=== PATIENT | male | born 1940 | race Asian ===

== ENCOUNTER 2016-12-08 16:14 | Inpatient (IN) | payer OTHER, MEDICAID ==
[~2016-12-08] VITALS: Ht 170.2 cm; Wt 54.5 kg
[2016-12-08 17:12] LABS: microscopic required? NO
[2016-12-08 17:20] LABS: urine erythrocyte NEGATIVE (NEGATIVE)
[2016-12-08 17:51] LABS: ALKALINE PHOSPHATASE 68 U/L (46-116); ALT/SGPT 19 U/L (16-63); AST/SGOT 48 U/L (15-37); CALCIUM 6.9 mg/dL (8.5-10.1); CARBON DIOXIDE 20.9 mmol/L (21-32); CHLORIDE SERUM 113 mmol/L (98-107); CREATININE SERUM 1.1 mg/dL (0.7-1.3); POTASSIUM SERUM 3.6 mmol/L (3.5-5.1); SODIUM SERUM 146 mmol/L (136-145)
[2016-12-08 17:52] LABS: ALBUMIN 1.7 g/dL (3.4-5.0); PLATELET COUNT 172 x10^3mcL (130-400); TOTAL PROTEIN, SERUM 3.9 g/dL (6.4-8.2)
[2016-12-08 17:56] LABS: GLUCOSE SERUM 549 mg/dL (74-106)
[2016-12-08 18:07] LABS: BAND NEUTROPHIL 4 % (0-10); BASOPHIL 0 % (0-2); SEGMENTED NEUTROPHILS 93 % (37-75)
[2016-12-08 18:13] LABS: rbc morphology (normal/abnorm) ABNORMAL (NORMAL)
[2016-12-08 18:16] LABS: PLATELET MORPHOLOGY PLATELETS NORMAL
[2016-12-08] MEDS ORDERED: JANUVIA100 M1 PO (18:18)
[2016-12-08] MEDS ORDERED: GLIPIZIDE2.5 M1 PO (18:18)
[2016-12-08] MEDS ORDERED: METFORMIN500 M1 PO (18:18)
[2016-12-08 20:14] LABS: CHOLESTEROL/HDL RATIO 2.8
[2016-12-08 20:23] LABS: FREE T4 1.03 ng/dL (0.76-1.46); T4(THYROXINE) 5.2 ug/dL (4.7-13.3)
[2016-12-08 20:28] LABS: T3 TOTAL 0.58 ng/mL
[2016-12-08 21:33] VITALS: BP 70/41
[2016-12-08 23:40] VITALS: BP 120/74
[2016-12-08 23:50] VITALS: BP 120/74
[2016-12-09] VITALS (17 sets, daily range): BP systolic 75–134; BP diastolic 48–83; Ht 170.2 cm; Wt 54.5 kg
[2016-12-09 01:34] LABS: CALCIUM 6.7 mg/dL (8.5-10.1); CARBON DIOXIDE 21.4 mmol/L (21-32); CHLORIDE SERUM 116 mmol/L (98-107); CREATININE SERUM 1.2 mg/dL (0.7-1.3); PHOSPHOROUS 3.9 mg/dL (2.5-4.9); POTASSIUM SERUM 4.8 mmol/L (3.5-5.1); SODIUM SERUM 150 mmol/L (136-145)
[2016-12-09 01:39] LABS: GLUCOSE SERUM 452 mg/dL (74-106)
[2016-12-09 01:40] LABS: PLATELET COUNT 155 x10^3mcL (130-400)
[2016-12-09 01:41] LABS: BASOPHIL % 0 % (0-2); RED CELL DISTRIBUTION WIDTH 14.7 % (11.5-14.5)
[2016-12-09 04:51] LABS: PLATELET COUNT 167 x10^3mcL (130-400)
[2016-12-09 04:55] LABS: BASOPHIL % 0 % (0-2); RED CELL DISTRIBUTION WIDTH 15.2 % (11.5-14.5)
[2016-12-09 05:04] LABS: CALCIUM 6.5 mg/dL (8.5-10.1); CARBON DIOXIDE 21.9 mmol/L (21-32); CHLORIDE SERUM 115 mmol/L (98-107); CREATININE SERUM 1.1 mg/dL (0.7-1.3); GLUCOSE SERUM 331 mg/dL (74-106); MAGNESIUM 1.7 mg/dL (1.8-2.4); PHOSPHOROUS 3.5 mg/dL (2.5-4.9); POTASSIUM SERUM 3.9 mmol/L (3.5-5.1); SODIUM SERUM 148 mmol/L (136-145)
[2016-12-09 09:19] LABS: CALCIUM 6.4 mg/dL (8.5-10.1); CARBON DIOXIDE 21.2 mmol/L (21-32); CHLORIDE SERUM 118 mmol/L (98-107); CREATININE SERUM 1.2 mg/dL (0.7-1.3); GLUCOSE SERUM 179 mg/dL (74-106); MAGNESIUM 1.7 mg/dL (1.8-2.4); PHOSPHOROUS 2.6 mg/dL (2.5-4.9); POTASSIUM SERUM 3.5 mmol/L (3.5-5.1); SODIUM SERUM 148 mmol/L (136-145)
[2016-12-10] VITALS (18 sets, daily range): BP systolic 81–146; BP diastolic 46–80
[2016-12-10 05:22] LABS: PLATELET COUNT 130 x10^3mcL (130-400)
[2016-12-10 05:30] LABS: RED CELL DISTRIBUTION WIDTH 16.4 % (11.5-14.5)
[2016-12-10 05:34] LABS: CALCIUM 6.5 mg/dL (8.5-10.1); CARBON DIOXIDE 21.3 mmol/L (21-32); CHLORIDE SERUM 120 mmol/L (98-107); CREATININE SERUM 1.1 mg/dL (0.7-1.3); GLUCOSE SERUM 351 mg/dL (74-106); MAGNESIUM 2.3 mg/dL (1.8-2.4); PHOSPHOROUS 3.3 mg/dL (2.5-4.9); POTASSIUM SERUM 3.3 mmol/L (3.5-5.1); SODIUM SERUM 152 mmol/L (136-145)
[2016-12-10 05:49] LABS: BAND NEUTROPHIL 30 % (0-10); METAMYELOCTE 3 % (0-2); MONOCYTE 3 % (0-7); SEGMENTED NEUTROPHILS 57 % (37-75)
[2016-12-10 05:52] LABS: rbc morphology (normal/abnorm) ABNORMAL (NORMAL)
[2016-12-10 05:53] LABS: PLATELET MORPHOLOGY SLIGHTLY DECREASED.
[2016-12-10 14:05] LABS: PLATELET COUNT 125 x10^3mcL (130-400); RED CELL DISTRIBUTION WIDTH 16.4 % (11.5-14.5)
[2016-12-10 16:42] LABS: BAND NEUTROPHIL 55 % (0-10); MONOCYTE 3 % (0-7); MYELOCYTE 1 % (0-2)
[2016-12-10 16:43] LABS: SEGMENTED NEUTROPHILS 36 % (37-75); rbc morphology (normal/abnorm) ABNORMAL (NORMAL)
[2016-12-10 16:44] LABS: PLATELET MORPHOLOGY PLATELETS DECREASED
[2016-12-11] VITALS (13 sets, daily range): BP systolic 81–131; BP diastolic 49–70
[2016-12-11 06:56] LABS: CALCIUM 7.1 mg/dL (8.5-10.1); CARBON DIOXIDE 23.1 mmol/L (21-32); CHLORIDE SERUM 120 mmol/L (98-107); CREATININE SERUM 0.9 mg/dL (0.7-1.3); GLUCOSE SERUM 238 mg/dL (74-106); SODIUM SERUM 152 mmol/L (136-145)
[2016-12-11 07:00] LABS: PLATELET COUNT 107 x10^3mcL (130-400); RED CELL DISTRIBUTION WIDTH 16.4 % (11.5-14.5)
[2016-12-11 08:58] LABS: POTASSIUM SERUM 2.9 mmol/L (3.5-5.1)
[2016-12-11 10:30] LABS: BAND NEUTROPHIL 13 % (0-10); BASOPHIL 0 % (0-2); MONOCYTE 3 % (0-7); SEGMENTED NEUTROPHILS 83 % (37-75)
[2016-12-11 10:31] LABS: PLATELET MORPHOLOGY PLATELETS DECREASED; rbc morphology (normal/abnorm) ABNORMAL (NORMAL)
[2016-12-12 00:10] VITALS: BP 73/37
[2016-12-12 03:10] VITALS: BP 69/44
== END 2016-12-12 07:02 | disposition expired | DRG 208 ==
LOC: ED 16:14 → IC 18:02
PROVIDERS: Emergency Medicine; Family Medicine; Internal Medicine Gastroenterology; ADMIT Family Medicine
PROC: 5A1945Z Respiratory Ventilation, 24-96 Consecutive Hours (ICD-10-PCS; principal; 2016-12-08)
PROC: 0BH17EZ Insertion of Endotracheal Airway into Trachea, Via Natural or Artificial Opening (ICD-10-PCS; 2016-12-08)
PROC: 05HM33Z Insertion of Infusion Device into Right Internal Jugular Vein, Percutaneous Approach (ICD-10-PCS; 2016-12-08)
PROC: B543ZZA Ultrasonography of Right Jugular Veins, Guidance (ICD-10-PCS; 2016-12-08)
PROC: 0DH683Z Insertion of Infusion Device into Stomach, Via Natural or Artificial Opening Endoscopic (ICD-10-PCS; 2016-12-10)
DX: J69.0 Pneumonitis due to inhalation of food and vomit (principal); J96.00 Acute respiratory failure, unspecified whether with hypoxia or hypercapnia; N17.0 Acute kidney failure with tubular necrosis; E43 Unspecified severe protein-calorie malnutrition; C16.9 Malignant neoplasm of stomach, unspecified; E87.2 Acidosis; D68.69 Other thrombophilia; D62 Acute posthemorrhagic anemia; E87.0 Hyperosmolality and hypernatremia; Z68.1 Body mass index [BMI] 19.9 or less, adult; E11.65 Type 2 diabetes mellitus with hyperglycemia; E11.51 Type 2 diabetes mellitus with diabetic peripheral angiopathy without gangrene; E83.51 Hypocalcemia; E86.0 Dehydration; Z66 Do not resuscitate; Z51.5 Encounter for palliative care; Z79.84 Long term (current) use of oral hypoglycemic drugs
CPT/HCPCS: 36556; 36600; 43235; 83880; 84439; A4628; C9113; G0480; J0171; J0330; J1200; J1610; J1642; J1815; J1940; J2060; J2250; J2270; J2310; J2370; J2405; J2543; J2765; J3010; J3475; J3480; J3490; J7030; J7040; J7042; J7050; J7060; J7620; P9016; Q0092